=== PATIENT | male | born 1995 | race Caucasian/White ===

== ENCOUNTER 2018-04-17 23:05 | Day surgery (SDC) | payer OTHER ==
--- NOTE | 2018-04-17 23:16 | ER Report ---
History and Physical Time Seen By MD: 23:16 Hx. of Stated Complaint: SUDDEN ONSET OF LOWER RT ABDOMINAL PAIN APPROXIMATELY 3 HOURS AGO, GETTING WORSE, WALKING SLIGHTLY DOUBLED OVER HPI/ROS CHIEF COMPLAINT: Right lower quadrant abdominal pain HISTORY OF PRESENT ILLNESS: This is a 23 year old male. He had severe lower ri ght pain starting about 3 hours prior to presenting to the ER. Worsens with movement, walking, cough. Worsening pain. No fevers or chills. Nausea, but no vomiting. No change in bowels. Allergies: Coded Allergies: No Known Drug Allergies (Unverified , 04/17/18) Home Meds No Active Prescriptions or Reported Meds Reviewed Nurses Notes: Yes Hx Substance Use Disorder: No Hx Alcohol Use: No Constitutional Vital Sign - Last 24 Hours 04/17/18 04/17/18 04/17/18 04/17/18 23:10 23:12 23:20 23:30 Temp 98.1 Pulse 95 91 Resp 16 B/P (MAP) 134/86 134/86 (102) 116/82 (93) Pulse Ox 94 93 O2 Delivery Room Air 04/17/18 04/17/18 04/18/18 04/18/18 23:35 23:50 00:00 00:05 Pulse 88 ? B/P (MAP) ???/??? (1665) 129/86 (100) Pulse Ox 95 95 04/18/18 04/18/18 04/18/18 04/18/18 00:20 00:30 00:35 00:50 Pulse 101 102 98 B/P (MAP) 133/68 (89) Pulse Ox 93 95 92 04/18/18 04/18/18 04/18/18 04/18/18 00:55 01:00 01:10 01:25 Pulse 99 96 95 B/P (MAP) 111/47 (68) Pulse Ox 94 91 91 04/18/18 04/18/18 04/18/18 04/18/18 01:30 01:40 01:45 02:00 Pulse 96 ??? 90 B/P (MAP) 115/62 (79) 94/84 (87) Pulse Ox 92 92 87 04/18/18 04/18/18 04/18/18 04/18/18 02:15 02:30 02:45 02:50 Pulse 92 ??? 87 89 B/P (MAP) 96/52 (67) Pulse Ox 90 90 91 91 04/18/18 04/18/18 04/18/18 04/18/18 03:00 03:05 03:20 03:30 Pulse 88 87 B/P (MAP) 94/46 (62) 98/47 (64) Pulse Ox 91 92 04/18/18 04/18/18 04/18/18 04/18/18 03:35 03:50 04:00 04:05 Pulse 89 85 89 B/P (MAP) 104/49 (67) Pulse Ox 90 91 91 04/18/18 04/18/18 04/18/18 04/18/18 04:20 04:30 04:35 04:40 Pulse 78 78 77 B/P (MAP) 103/43 (63) Pulse Ox 92 91 92 Intake and Output 04/17/18 04/17/18 04/18/18 15:00 23:00 07:00 Intake Total 1100 ml Balance 1100 ml Physical Exam General Appearance: The patient is alert. Acute distress due to pain. Eyes: Pupils are equal, round. No pallor, injection or icterus. ENT: Mucous membranes are moist. Normal oral mucosa. Posterior oropharynx is normal. Neck: Supple and non tender. Respiratory: Lungs are clear to auscultation. Cardiovascular: Regular rate and rhythm. No murmurs, gallops or rubs. Normal capillary refill. Gastrointestinal: abdomen is tender, right lower, with rebound. Nondistended. Normal active bowel sounds. No costovertebral angle tenderness with percussion. Neurological: Alert and oriented x3. Skin: no rashes. DIFFERENTIAL DIAGNOSIS: After history and physical exam, differential diagnosis was considered for right lower quadrant abdominal pain including but not limited to appendicitis, cholecystitis, colitis, enteritis and urinary tract infection. Medical Decision Making Data Points Result Diagram: 04/17/18232404/17/182324 Laboratory Hematology Test 04/17/18 23:11 04/17/18 23:25 Urine Color Yellow Urine Clarity Cloudy Urine pH 7.0 pH (4.8-9.5) Urine Specific [place] 1.026 Urine Protein Negative mg/dL (NEGATIVE) Urine Glucose (UA) Negative mg/dL (NEGATIVE) Urine Ketones Negative mg/dL (NEGATIVE) Urine Blood Negative (NEGATIVE) Urine Nitrite Negative (NEGATIVE) Urine Bilirubin Negative (NEGATIVE) Urine Urobilinogen 2.0 mg/dL (0.2-1.9) Urine Leukocyte Esterase Negative (NEGATIVE) Urine RBC 1 /HPF (0-2/HPF) Urine WBC 2 /HPF (0-5/HPF) Urine Squamous Epithelial Cells None /LPF (</=FEW) Urine Amorphous Crystals Few /HPF Urine Bacteria Few /HPF (NONE-FEW) Urine Mucus Few /HPF (NONE-FEW) Red Blood Count 5.74 M/uL (4.00-5.60) Mean Corpuscular Volume 83.5 fL (80.0-96.0) Mean Corpuscular Hemoglobin 29.5 pg (26.0-33.0) Mean Corpuscular Hemoglobin Concent 35.3 g/dL (32.0-36.0) Red Cell Distribution Width 12.4 % (11.5-14.5) Mean Platelet Volume 10.3 fL (7.2-11.1) Neutrophils (%) (Auto) 79.8 % (39.4-72.5) Lymphocytes (%) (Auto) 14.6 % (17.6-49.6) Monocytes (%) (Auto) 4.4 % (4.1-12.4) Eosinophils (%) (Auto) 0.8 % (0.4-6.7) Basophils (%) (Auto) 0.4 % (0.3-1.4) Nucleated RBC Relative Count (auto) 0.0 /100WBC Neutrophils # (Auto) 13.5 K/uL (2.0-7.4) Lymphocytes # (Auto) 2.5 K/uL (1.3-3.6) Monocytes # (Auto) 0.7 K/uL (0.3-1.0) Eosinophils # (Auto) 0.1 K/uL (0.0-0.5) Basophils # (Auto) 0.1 K/uL (0.0-0.1) Nucleated RBC Absolute Count (auto) 0.01 K/uL Sodium Level 139 mmol/L (137-145) Potassium Level 3.6 mmol/L (3.5-5.0) Chloride Level 97 mmol/L (98-107) Carbon Dioxide Level 31 mmol/L (22-30) Blood Urea Nitrogen 19 mg/dl (9-21) Creatinine 1.10 mg/dl (0.66-1.25) Glomerular Filtration Rate Calc > 60.0 Random Glucose 100 mg/dl (75-110) Calcium Level 9.4 mg/dl (8.4-10.2) Total Bilirubin 0.7 mg/dl (0.2-1.3) Aspartate Amino Transf (AST/SGOT) 36 U/L (0-35) Alanine Aminotransferase (ALT/SGPT) 51 U/L (0-56) Alkaline Phosphatase 72 U/L (0-126) Total Protein 7.3 g/dl (6.3-8.2) Albumin 4.3 g/dl (3.5-5.0) Amylase Level 66 U/L (0-110) Lipase 42 U/L (23-300) Chemistry Test 04/17/18 23:11 04/17/18 23:25 Urine Color Yellow Urine Clarity Cloudy Urine pH 7.0 pH (4.8-9.5) Urine Specific [place] 1.026 Urine Protein Negative mg/dL (NEGATIVE) Urine Glucose (UA) Negative mg/dL (NEGATIVE) Urine Ketones Negative mg/dL (NEGATIVE) Urine Blood Negative (NEGATIVE) Urine Nitrite Negative (NEGATIVE) Urine Bilirubin Negative (NEGATIVE) Urine Urobilinogen 2.0 mg/dL (0.2-1.9) Urine Leukocyte Esterase Negative (NEGATIVE) Urine RBC 1 /HPF (0-2/HPF) Urine WBC 2 /HPF (0-5/HPF) Urine Squamous Epithelial Cells None /LPF (</=FEW) Urine Amorphous Crystals Few /HPF Urine Bacteria Few /HPF (NONE-FEW) Urine Mucus Few /HPF (NONE-FEW) White Blood Count 16.9 k/uL (4.5-11.0) Red Blood Count 5.74 M/uL (4.00-5.60) Hemoglobin 16.9 g/dL (14.0-18.0) Hematocrit 47.9 % (42.0-52.0) Mean Corpuscular Volume 83.5 fL (80.0-96.0) Mean Corpuscular Hemoglobin 29.5 pg (26.0-33.0) Mean Corpuscular Hemoglobin Concent 35.3 g/dL (32.0-36.0) Red Cell Distribution Width 12.4 % (11.5-14.5) Platelet Count 158 K/uL (150-450) Mean Platelet Volume 10.3 fL (7.2-11.1) Neutrophils (%) (Auto) 79.8 % (39.4-72.5) Lymphocytes (%) (Auto) 14.6 % (17.6-49.6) Monocytes (%) (Auto) 4.4 % (4.1-12.4) Eosinophils (%) (Auto) 0.8 % (0.4-6.7) Basophils (%) (Auto) 0.4 % (0.3-1.4) Nucleated RBC Relative Count (auto) 0.0 /100WBC Neutrophils # (Auto) 13.5 K/uL (2.0-7.4) Lymphocytes # (Auto) 2.5 K/uL (1.3-3.6) Monocytes # (Auto) 0.7 K/uL (0.3-1.0) Eosinophils # (Auto) 0.1 K/uL (0.0-0.5) Basophils # (Auto) 0.1 K/uL (0.0-0.1) Nucleated RBC Absolute Count (auto) 0.01 K/uL Glomerular Filtration Rate Calc > 60.0 Calcium Level 9.4 mg/dl (8.4-10.2) Total Bilirubin 0.7 mg/dl (0.2-1.3) Aspartate Amino Transf (AST/SGOT) 36 U/L (0-35) Alanine Aminotransferase (ALT/SGPT) 51 U/L (0-56) Alkaline Phosphatase 72 U/L (0-126) Total Protein 7.3 g/dl (6.3-8.2) Albumin 4.3 g/dl (3.5-5.0) Amylase Level 66 U/L (0-110) Lipase 42 U/L (23-300) Urinalysis Test 04/17/18 23:11 Urine Color Yellow Urine Clarity Cloudy Urine pH 7.0 pH (4.8-9.5) Urine Specific [place] 1.026 Urine Protein Negative mg/dL (NEGATIVE) Urine Glucose (UA) Negative mg/dL (NEGATIVE) Urine Ketones Negative mg/dL (NEGATIVE) Urine Blood Negative (NEGATIVE) Urine Nitrite Negative (NEGATIVE) Urine Bilirubin Negative (NEGATIVE) Urine Urobilinogen 2.0 mg/dL (0.2-1.9) Urine Leukocyte Esterase Negative (NEGATIVE) Urine RBC 1 /HPF (0-2/HPF) Urine WBC 2 /HPF (0-5/HPF) Urine Squamous Epithelial Cells None /LPF (</=FEW) Urine Amorphous Crystals Few /HPF Urine Bacteria Few /HPF (NONE-FEW) Urine Mucus Few /HPF (NONE-FEW) EKG/Imaging Imaging ABDOMEN/PELVIS WITH CONTRAST COMPARISONS: None. ADDITIONAL PERTINENT HISTORY: Right lower quadrant abdominal pain TECHNIQUE: Multiple axial images were obtained from the lung bases through the lesser trochanters before and after the IV administration of IV contrast. One of the following dose optimization techniques was utilized in the performance of this exam: Automated exposure control; adjustment of the mA and/or kV according to the patient's size; or use of an iterative reconstruction technique. Specific details can be referenced in the facility's radiology CT exam operational policy. CONTRAST: 75 ml of Isovue-370 FINDINGS: Lung bases: Negative. Free air and free fluid: None. Liver: Negative. Spleen: Negative. Kidneys, ureters and urinary bladder: Negative. Adrenal glands: Negative. Pancreas: Negative. Gallbladder: Negative. Bowel and mesentery: There are findings of a dilated tubular blind-ending structure in the right lower quadrant with soft tissue stranding adjacent to this structure compatible with acute appendicitis. The appendix is posterior to the cecum along the midportion of the cecum. No bowel obstruction.. Pelvic contents: Negative Lymph node assessment: Negative. Retroperitoneum: Negative. Abdominal vasculature: Negative. Surrounding soft tissues: Negative. Osseous structures: Negative. IMPRESSION: 1. Findings of appendicitis with no evidence of perforation or abscess collection. Results were discussed with BOB VARNER at 04/18/2018 12:28 AM. Report Dictated By: Sarath Arreola MD at 04/18/2018 12:20 AM ED Course/Re-evaluation Clinical Indication for ER IV: Hydration, IV Access ED Course Initial impression was acute abdomen likely appendicitis. Labs obtained, IV started, and the patient was sent for CT scan. Labs do show an elevated white count. CT scan consistent with acute appendicitis without rupture. Discussed with Dr. Cyr and plan on surgery later in the morning. We'll start Zosyn Decision to Disposition Date: Apr 18, 2018 Decision to Disposition Time: 00:35 Depart Departure Latest Vital Signs Vital Signs Date Time Temp Pulse Resp B/P (MAP) Pulse Ox O2 Delivery O2 Flow Rate FiO2 04/18/18 04:40 77 92 04/18/18 04:30 103/43 (63) 04/17/18 23:10 98.1 16 Room Air Impression: Primary Impression: Appendicitis Condition: Condition Unchanged Disposition: ADMIT FROM ER TO OR New Scripts No Active Prescriptions or Reported Meds Problem Qualifiers Primary Impression: Appendicitis Appendicitis type: acute appendicitis Acute appendicitis type: with localized peritonitis Appendicitis gangrene presence: without gangrene Appendicitis perforation presence: without perforation Appendicitis abscess presence: without abscess Qualified Codes: K35.30 - Acute appendicitis with localized peritonitis, without perforation or gangrene BOB VARNER MD Apr 17, 2018 23:16
[2018-04-17] MEDS ORDERED: NS(*) 0.9% 1000 ML BAG 1,000 ML IV ONE (23:36)
[2018-04-17] MEDS ORDERED: ONDANSETRON 4 MG/2 ML VIAL IVP ONE (23:45)
[2018-04-17] MEDS ORDERED: IOPAMIDOL 76% 75 ML INFUS BTL 75 ML ONE (23:52)
[2018-04-18 00:20] LABS: PLATELET COUNT, AUTOMATED 158 K/uL (150-450)
--- NOTE | 2018-04-18 00:32 | RADIOLOGY IMAGING REPORT ---
FACILITY: [facility] - [place] PATIENT NAME: Michael Hinkle : 1995 MR: [id number] V: [id number] EXAM DATE: ORDERING PHYSICIAN: BOB VARNER TECHNOLOGIST: Location: [facility] Patient: Michael Hinkle : 1995 Visit/Account:[id number] Date of Sevice: 04/17/2018 ABDOMEN/PELVIS WITH CONTRAST COMPARISONS: None. ADDITIONAL PERTINENT HISTORY: Right lower quadrant abdominal pain TECHNIQUE: Multiple axial images were obtained from the lung bases through the lesser trochanters bef ore and after the IV administration of IV contrast. One of the following dose optimization technique s was utilized in the performance of this exam: Automated exposure control; adjustment of the mA and/ or kV according to the patient's size; or use of an iterative reconstruction technique. Specific de tails can be referenced in the facility's radiology CT exam operational policy. CONTRAST: 75 ml of Isovue-370 FINDINGS: Lung bases: Negative. Free air and free fluid: None. Liver: Negative. Spleen: Negative. Kidneys, ureters and urinary bladder: Negative. Adrenal glands: Negative. Pancreas: Negative. Gallbladder: Negative. Bowel and mesentery: There are findings of a dilated tubular blind-ending structure in the right lowe r quadrant with soft tissue stranding adjacent to this structure compatible with acute appendicitis. The appendix is posterior to the cecum along the midportion of the cecum. No bowel obstruction.. Pelvic contents: Negative Lymph node assessment: Negative. Retroperitoneum: Negative. Abdominal vasculature: Negative. Surrounding soft tissues: Negative. Osseous structures: Negative. IMPRESSION: 1. Findings of appendicitis with no evidence of perforation or abscess collection. Results were discussed with BOB VARNER at 04/18/2018 12:28 AM. Report Dictated By: Sarath Arroela MD at 04/18/2018 12:20 AM Report E-Signed By: Sarath Arreola MD at 04/18/2018 12:28 AM WSN:[id number]
[2018-04-18] MEDS ORDERED: PIPERACILLIN/TAZO*3.375GM VIAL 3.375 GM in NS(*) 0.9% 100 ML ADDVANT BAG 100 ML IVPB ONE (00:35)
[2018-04-18] MEDS ORDERED: NORMOSOL R SOLN(*) 1000 ML BAG 1,000 ML IV ONE (05:04)
--- NOTE | 2018-04-18 05:18 | Gen Surgery History & Physical ---
History of Present Illness Chief Complaint Right lower quadrant Abdominal pain History of Present Illness 23-year-old otherwise healthy male presents with a one-day history of right lower quadrant abdominal pain. It started at 9:00 last night, approximately 8 hours ago. No nausea, vomiting, fevers, chills, constipation, diarrhea, or anorexia. He came into the emergency department where he was found to have a leukocytosis of over 16,[address] is consistent with acute appendicitis. I have been consulted for further evaluation and management of this patient. History Home Meds No Active Prescriptions or Reported Meds Allergies: Coded Allergies: No Known Drug Allergies (Unverified , 04/17/18) Review of Systems All Systems Reviewed/Normal: Yes, Except as Noted Gastrointestinal: Abdominal Pain Exam General Appearance: Alert, Awake, No Acute Distress, Afebrile Neuro: No Gross deficits Eyes: PERRLA GI: Other (soft, right lower quadrant tenderness to palpation with focal peritoneal irritation.) Extremities: Warm, Perfused Psych: Alert & Oriented X3, Appropriate Mood & Affect Medical Decision Making Data Points Result Diagram: 04/17/18 2515 04/17/18 7189 Assessment and Plan Problems: (1) Appendicitis Status: Acute Assessment & Plan: 04/18/18: I have explained the diagnosis of appendicitis and its treatment to the patient in detail. I have recommended that we proceed with laparoscopic appendectomy. I have explained the surgery in great detail as well as the alternatives, risks, and expected recovery. He seems to understand this discussion and he would like to proceed with this plan including surgery. He received a dose of Zosyn a couple of hours ago. He has also been NPO. Condition Stable Time Spent: < 30 min Venous Thromboembolism VTE Risk Physician Assess for VTE Risk: Yes Patient's VTE Risk: Low VTE Diagnostic Test 2 Days Prior to Admit: No Antithrombotics Is Pt On Any Antithrombotics?: No Problem Qualifiers (1) Appendicitis: Appendicitis type: acute appendicitis Acute appendicitis type: with localized peritonitis Appendicitis gangrene presence: without gangrene Appendicitis perforation presence: without perforation Appendicitis abscess presence: without abscess Qualified Codes: K35.30 - Acute appendicitis with localized peritonitis, without perforation or gangrene ALBANIA SPICER MD Apr 18, 2018 05:18
[2018-04-18] MEDS ORDERED: fentaNYL CITR 250 MCG/5 ML AMP ONE (05:32)
[2018-04-18] MEDS ORDERED: ROCURONIUM BROM 10 MG/ML 10 ML ONE (05:32)
[2018-04-18] MEDS ORDERED: PROPOFOL EMUL(*) 10MG/ML 20 ML 20 ML ONE (05:32)
[2018-04-18] MEDS ORDERED: SUGAMMADEX SOD 200 MG/2 ML SDV ONE ×2 (05:32→06:32)
[2018-04-18] MEDS ORDERED: LIDOCAINE MPF 1% 5 ML VIAL ONE (05:32)
[2018-04-18] MEDS ORDERED: DEXAMETHASONE SOD 4 MG/ML VIAL ONE (05:32)
[2018-04-18] MEDS ORDERED: ONDANSETRON 4 MG/2 ML VIAL ONE ×2 (05:32→07:55)
[2018-04-18] MEDS ORDERED: KETAMINE HCL-NS 50 MG/5 ML SYR ONE (05:33)
[2018-04-18] MEDS ORDERED: ROPIVACAINE 0.5% 20 ML VIAL ONE (05:57)
[2018-04-18] MEDS ORDERED: DOCU-416 PO (06:52)
[2018-04-18] MEDS ORDERED: OXYC-854 PO (06:52)
--- NOTE | 2018-04-18 06:54 | Short(Outpt) Discharge Summary ---
Discharge Summary Reason for Hosp/Final Diag: (1) Appendicitis Status: Acute Hospital Course & Plan: 04/18/18: I have explained the diagnosis of appendicitis and its treatment to the patient in detail. I have recommended that we proceed with laparoscopic appendectomy. I have explained the surgery in great detail as well as the alternatives, risks, and expected recovery. He seems to understand this discussion and he would like to proceed with this plan including surgery. He received a dose of Zosyn a couple of hours ago. He has also been NPO. 04/18/18 (postop): Lap appy completed without problems. Pt tolerated the procedure without issues and so was d/taylor to home in good condition. Departure Discharge to: Home, Self Care Discharge Instructions Home Meds Active Scripts Docusate Sodium (COLACE) 100 Mg Capsule, 1 CAP PO BID, #30 CAP 0 Refills TAKE WITH A FULL GLASS OF WATER Prov:ALBANIA SPICER MD 04/18/18 Oxycodone Hcl/Acet 5/325 Mg (ENDOCET 5-325 TABLET) 1 Each Tablet, 1 TAB PO Q4H PRN for PAIN, #20 TAB 0 Refills Prov:ALBANIA SPICER MD 04/18/18 Follow up Referrals: General Surgery - 05/06/18 @ Surgery, General with ALBANIA SPICER MD You have a follow up appointment scheduled with Dr. Spicer on 05/06/18, at 4:45pm. Diet: Regular Activity: As Tolerated Special Instructions: You may remove the white surgical dressings on 04/20/18, then you can shower. After showering, leave the incisions open to air but leave the steristrips in place until they fall off on their own. Do not immerse the incisions for 2 weeks. Problem Qualifiers (1) Appendicitis: Appendicitis type: acute appendicitis Acute appendicitis type: with localized peritonitis Appendicitis gangrene presence: without gangrene Appendicitis perforation presence: without perforation Appendicitis abscess presence: without abscess Qualified Codes: K35.30 - Acute appendicitis with localized peritonitis, without perforation or gangrene ALBANIA SPICER MD Apr 18, 2018 06:54
--- NOTE | 2018-04-18 06:59 | Post Operative Progress Note ---
Post Operative Progress Note Date: Apr 18, 2018 Time: 06:55 Surgeon: Basil Dictation number: [id number] Anesthesia: GETA by Dr. Kumar Pre-Op Diagnosis: Acute appendicitis Post-Op Diagnosis: LEROY Findings: C/W dx, inlfammed appendix, no purulence, gangrene, or perforation Procedure(s): Lap appy Specimen Removed:(May be N/A): Appendix Complications: None Fluids: See anesthesia record Estimated Blood Loss: Minimal Date OP Note Dictated: Apr 18, 2018 Time OP Note Dictated: 06:56 ALBANIA SPICER MD Apr 18, 2018 06:59
[2018-04-18] MEDS ORDERED: fentaNYL CITR 100 MCG/2 ML AMP ONE (07:00)
[2018-04-18 08:30] VITALS: BP 111/71
[2018-04-18 09:00] VITALS: BP 99/62
[2018-04-18 09:48] VITALS: BP 102/66
[2018-04-18 09:49] VITALS: BP 108/58
--- NOTE | 2018-04-18 10:45 | OPERATIVE REPORT 1 ---
EVENT DATE: April 18, 2018 SURGEON: Tylor Gracia MD ANESTHESIOLOGIST: Eliot Altamirano MD ANESTHESIA: General endotracheal. PREOPERATIVE DIAGNOSIS Acute appendicitis. POSTOPERATIVE DIAGNOSIS Acute appendicitis. PROCEDURE PERFORMED Laparoscopic appendectomy. COMPLICATIONS None. CONDITION Stable. ESTIMATED BLOOD LOSS Minimal. INDICATIONS This is a 23-year-old gentleman who presented to the emergency room with a one day history of right lower quadrant abdominal pain with a CT scan consistent with acute appendicitis. He has provided consent for a laparoscopic appendectomy. DESCRIPTION OF PROCEDURE The patient was brought to the operating room and placed supine on the operating table. General endotracheal anesthesia was administered and his abdomen was prepped and draped in sterile fashion. A timeout was completed and I injected the infraumbilical skin with 0.5% Ropivacaine plain. I made a curvilinear smily face stab incision in the infraumbilical rim and dissected down through the dermis and subcutaneous fat. I identified the midline fascia. I made a vertical incision in the midline fascia and bluntly entered the peritoneal cavity with my finger. I placed two interrupted 0 Vicryl sutures transversely through the vertical fascial defect, one cephalad and one caudad and then entered a 12 mm Conrad type port through this wound, secured in place with sutures. I insufflated the abdomen to a pressure of 15 mmHg and inserted a 5 mm 30 degree angled scope through this port. Gross inspection of the abdominal cavity did not reveal any obvious evidence of pathology or entry related injuries. The appendix was not immediately visible. I placed a 5 mm port in the suprapubic midline and a 5 mm port in the left lower quadrant. The patient was placed in Trendelenburg and planed towards the left to move viscera away from the right lower quadrant and then I used an atraumatic grasper and a harmonic scalpel to identify the appendix and divide the mesoappendix with the harmonic scalpel all the way down to the base and then divide the base of the appendix flush with the cecum with an Endo-JACQUELINE stapler with the blue load. The appendix was placed in a surgical specimen retrieval bag and removed from the abdomen through the umbilical port site. I irrigated and dried the right lower quadrant and there was some oozing from the staple line and so this was controlled with clips. When this was all done, everything looked nice and hemostatic, but I placed the rest of the hemostatic powder in the right lower quadrant. The patient was flattened and the viscera was moved into the natural position and the 5 mm ports were removed and the peritoneal surfaces were inspected for bleeding and there was none. I removed the camera followed by the umbilical port after desufflating the abdomen and placed another 0 Vicryl [id number] suture through the fascial defect and tied all three of these down with good reapproximation of the fascial edges. The skin at each incision was closed with 4-0 Monocryl subcuticular sutures. The skin was cleaned, dried and Steri-Strips were applied, followed by sterile surgical dressings. The patient was awakened and extubated in the operating room and transported to the recovery room in stable condition having tolerated the procedure without any apparent problems. ALLEN
== END 2018-04-18 07:45 | disposition home or self-care (01) ==
LOC: ER 23:32 → OR 04-18 04:48
PROVIDERS: ATTEND Surgery
DX: K35.30 Acute appendicitis with localized peritonitis, without perforation or gangrene (principal)
CPT/HCPCS: 44970; 74177; 81001; 82150; 83690; 85025; 88304; 94667; J1100; J2001; J2405; J2543; J2704; J2795; J3010; J3490; J7050; Q9967; 82040; 82247; 82310; 82374; 82435; 82565; 82947; 84075; 84132; 84155; 84295; 84450; 84460; 84520; 99284